=== PATIENT | female | born 1975 | race Hispanic/Latino ===

== ENCOUNTER 2020-11-01 09:53 | Emergency (ER) | payer SELFPAY ==
--- NOTE | 2020-11-01 10:17 | EDPHYS ---
Physician Documentation [facility] Name: Mary Quinones Age: 45 yrs Sex: Female : 1975 Arrival Date: 11/01/2020 Time: 09:56 Bed 23 Private MD: Bianka Uribe H ED Physician Heri Lewis HPI: 11/01 10:15 This 45 yrs old Female presents to ER via Ambulatory with complaints of Leg kb Swelling - redness. 10:15 The patient presents with cellulitis of the lateral aspect of right calf. Description: kb erythematous, swollen, warm. Onset: The symptoms/episode began/occurred 2 day(s) ago. Possible cause(s): dog scratch. Associated signs and symptoms: Pertinent positives: erythema, swelling, Pertinent negatives: discharge, drainage, foreign body sensation, fever, headache, nausea, shortness of breath, vomiting. Modifying factors: the symptoms are alleviated by nothing, the symptoms are aggravated by pressure, touching. Severity of symptoms: At their worst the symptoms were moderate, in the emergency department the symptoms are unchanged. The patient has not experienced similar symptoms in the past. The patient has not recently seen a physician. Pt states a dog scratched her leg 2-3 days ago. Since then it has developed redness, swelling and warmth. . 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 Last tetanus immunization: up to date. - Social history:: Smoking status: Patient reports the use of cigarette tobacco products, denies chronic smoking, but will smoke occasionally. ROS: 10:14 Constitutional: Negative for fever, chills, and weight loss. kb 10:14 Skin: Positive for cellulitis, erythema, swelling, of the lateral aspect of right calf. 10:14 All other systems are negative. Exam: 10:14 Constitutional: This is a well developed, well nourished patient who is awake, alert, kb and in no acute distress. Head/Face: Normocephalic, atraumatic. ENT: Moist Mucous membranes Respiratory: Respirations even and unlabored. No increased work of breathing, no retractions or nasal flaring. MS/ Extremity: Pulses equal, no cyanosis. Neurovascular intact. Full, normal range of motion. Neuro: Awake and alert, GCS 15, oriented to person, place, time, and situation. Moves all extremities. Normal gait. Psych: Awake, alert, with orientation to person, place and time. Behavior, mood, and affect are within normal limits. 10:14 Skin: cellulitis, that is moderate, on the lateral aspect of right calf. Vital Signs: 10:03 BP 172 / 111; Pulse 89; Resp 18 S; Temp 99.0(TE); Pulse Ox 100% on R/A; Weight 92.99 kg jd3 (R); Height 5 ft. 6 in. (167.64 cm) (R); Pain 10/10; 10:29 BP 125 / 95; Pulse 81; Resp 17; Pulse Ox 100% on R/A; oh 10:29 BP 131 / 89; Pulse 83; Resp 17; Temp 97.9(TE); Pulse Ox 100% on R/A; oh 10:03 Body Mass Index 33.09 (92.99 kg, 167.64 cm) jd3 MDM: 10:05 Patient medically screened. kb 10:13 Data reviewed: vital signs, nurses notes. Data interpreted: Pulse oximetry: on room air kb is 100 %. Interpretation: normal. 10:16 Counseling: I had a detailed discussion with the patient and/or guardian regarding: the kb historical points, exam findings, and any diagnostic results supporting the discharge/admit diagnosis, the need for outpatient follow up, a family practitioner, to return to the emergency department if symptoms worsen or persist or if there are any questions or concerns that arise at home. 11/01 10:13 Order name: Blood Pressure Recheck; Complete Time: 10:27 kb Administered Medications: 10:26 Drug: KeFLEX (cephalexin) 500 mg Route: PO; oh 10:39 Follow up: Response: No adverse reaction oh 10:27 Drug: Bactrim (trimethoprim-sulfamethoxazole) (160 mg-800 mg (DS) 1 tablet Route: PO; oh 10:39 Follow up: Response: No adverse reaction oh Disposition: 17:05 Co-signature as Attending Physician, Heri Lewis MD I agree with the assessment and kdr plan of care. Disposition Summary: 11/01/20 10:16 Discharge Ordered Location: Home kb Condition: Stable kb Diagnosis - Cellulitis of right lower limb kb Followup: kb - With: Emergency Department - When: As needed - Reason: Worsening of condition Followup: kb - With: Private Physician - When: 2 - 3 days - Reason: Recheck today's complaints, Continuance of care, Re-evaluation by your physician Discharge Instructions: - Discharge Summary Sheet kb - Cellulitis, Adult, Rbvl-ve-Odpv kb Forms: - Medication Reconciliation Form kb - Thank You Letter kb - Antibiotic Education kb - Prescription Opioid Use kb Prescriptions: - Cephalexin 500 mg Oral Capsule - take 1 capsule by ORAL route every 8 hours for 10 days; 30 capsule; Refills: 0, kb Product Selection Permitted - Bactrim DS 800-160 mg Oral Tablet - take 1 tablet by ORAL route every 12 hours for 10 days; 20 tablet; Refills: 0, kb Product Selection Permitted Signatures: Anuja Laguerre, WIRE FRAME LAMP SHADE MAKER-C WIRE FRAME LAMP SHADE MAKER-Heri Donahue MD MD kdr Migue Hernandes RN RN Kiko Waldron RN RN oh Corrections: (The following items were deleted from the chart) 10:03 10:03 PMHx: None; dustin chan
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
[2020-11-01 10:46] VITALS: O2SAT 100
[2020-11-01] MEDS ORDERED: CEPHALEXIN 250 MG CAP ONE (10:46)
[2020-11-01] MEDS ORDERED: SMZ./TMP. 800/160 MG TABLET ONE (10:47)
[2020-11-01 10:48] VITALS: BP 131/89; TEMP 97.9
== END 2020-11-01 10:39 | disposition home or self-care (01) ==
LOC: ER 09:53
DX: L03.115 Cellulitis of right lower limb (principal); I10 Essential (primary) hypertension; F17.210 Nicotine dependence, cigarettes, uncomplicated
CPT/HCPCS: 99283

== ENCOUNTER 2021-07-11 17:16 | Emergency (ER) | payer SELFPAY ==
--- OUTSIDE RECORDS SUMMARY | 2021-07-11 17:19 | XMS REPORT | Continuity of Care Document ---
:1975 Author Organization [facility] t Address [address] [place] [address] Care Team Providers Name Role Phone PCP, DOES NOT HAVE A Primary Care Physician Unavailable Kyle SHAW Attending Clinician Unavailable Ida Coley Attending Clinician Con DE LUNA S Attending Clinician Problems Condition Condition Condition Status Onset Resolution Last Treating Co mments Source Name Details Category Date Date Treatment Clinician Date No known No known Disease Unive rs active active ity of problems problems [facility] [place] [facility] Allergies, Adverse Reactions, Alerts Allergy Allergy Status Severity Reaction(s) Onset Inactive Treating Comm ents Source Name Type Date Date Clinician Sulfamet Propensi Active Other - See Bactrim Univers hoxazole ty to comments 09-05 ity of adverse 00:00: [place] reaction 00 [facility] SULFAMET DRUG Active Other-Cmnt Univ ers HOXAZOLE INGREDI 09-05 ity of 00:00: [place] 00 [facility] Social History Social Habit Start Date Stop Date Quantity Comments Source Sex Assigned At [facility] y [facility] Alcohol intake 2019-03-03 2019-03-03 [facility] 00:00:00 00:00:00 [facility] Smoking Status Start Date Stop Date Source Light tobacco smoker 2019-03-03 00:00:00 [facility] Medications Ordered Filled Start Stop Current Ordering Indication Dosage Frequency Signature Comments Components Source Medication Medication Date Date Medication? Clinician (SIG) Name Name dexamethaso 2019- No 10mg 10 mg, Uni vers ne 03-03 Oral, ity of (DECADRON 20:45: 20:13 ONCE, 1 [place] PHOS[place] 00 :00 dose, [place] Medi demetrice injection 03/03/19 at [facility] 10 mg 1445, STAT codeine-gua 2019- Yes [id number] 10mL Take 10 mL Univers ifenesin 1-23 by mouth ity of 10-100 mg/5 00:00: every 6 [place] as mL solution 00 (six) Medical hours as Branch needed for Cough. ibuprofen 2018- Yes [id number] 800mg Take 1 Univers 800 mg 9-30 tablet by ity of tablet 00:00: mouth [place] 00 every 8 Medical (eight) Branch hours as needed (PAIN). cephALEXin 2018- Yes [id number] 500mg Take 1 Univers (KEFLEX) 9-30 capsule by ity o f 500 mg 00:00: mouth 4 [place] capsule 00 (four) Medical times Branch daily. acetaminoph 2018- Yes [id number] 1{tbl} Take 1 Univers en-codeine 9-23 tablet by ity of 300-30 mg 00:00: mouth [place] tablet 00 every 6 Medical (six) Branch hours as needed for Pain (scale 7-10). HYDROcodone 2019- No 1{tbl} 1 tablet, Univers -acetaminop 10-22 Oral, ity of hen (NORCO 02:00: 01:02 ONCE, 1 [place] as 5) 5-325 mg 00 :00 dose, Odalis Med ical tablet 1 10/21/18 at [facility] h tablet 2100, MOOSE ketorolac 2019- No 60mg 60 mg, Unive rs (TORADOL) 10-22 Intramuscu ity of injection 02:00: 01:02 lar, ONCE, [place] 60 mg 00 :00 1 dose, Medical Od[place] Branch 10/21/18 at 2100, MOOSE
Fa culty member approving Restricted medication : SIRISHA DONWS lisinopril 2019- Yes [id number] 40mg Take 1 U nivers 40 mg 9-12 tablet by ity of tablet 00:00: mouth [place] 00 daily. Medical Branch traMADol 2018- Yes [id number] 50mg Take 1 Uni vers (ULTRAM) 50 9-12 tablet by ity of mg tablet 00:00: mouth [place] 00 every 6 Medical (six) Branch hours as needed for Pain (scale 7-10). lisinopril 2018- Yes [id number] 40mg Take 1 U nivers 40 mg 9-12 tablet by ity of tablet 00:00: mouth [place] 00 daily. Medical Branch traMADol Yes [id number] 50mg Take 1 Uni vers (ULTRAM) 50 9-12 tablet by ity of mg tablet 00:00: mouth [place] 00 every 6 Medical (six) Branch hours as needed for Pain (scale 7-10). acetaminoph Yes 1-2 by [facility] en-codeine 10-11 mouth ity of (TYLENOL-CO 00:00: every 4-6 [place] DEINE #3) 00 hours as Medica l 300-30 mg needed for Bran ch tablet pain acetaminoph Yes 1-2 by [facility] ers en-codeine 10-11 mouth ity of (TYLENOL-CO 00:00: every 4-6 [place] DEINE #3) 00 hours as Medica l 300-30 mg needed for Bran ch tablet pain Vital Signs Vital Name Observation Time Observation Value Comments Source Systolic blood 2019-03-03 18:57:00 164 mm[Hg] [facility] Diastolic blood 2019-03-03 18:57:00 92 mm[Hg] [facility] Heart rate 2019-03-03 18:57:00 97 /min [facility] Body temperature 2019-03-03 18:57:00 37.33 Summer [facility] Respiratory rate 2019-03-03 18:57:00 19 /min [facility] Oxygen saturation in 2019-03-03 18:57:00 100 /min [facility] Arterial blood by [facility] Pulse oximetry Branch Body weight 2019-03-03 18:53:00 77.111 kg [facility] BMI 2019-03-03 18:53:00 27.44 kg/m2 [facility] Systolic blood 2018-10-22 02:00:00 152 mm[Hg] [facility] Diastolic blood 2018-10-22 02:00:00 106 mm[Hg] [facility] Heart rate 2018-10-22 02:00:00 93 /min [facility] Respiratory rate 2018-10-22 02:00:00 18 /min [facility] Oxygen saturation in 2018-10-22 02:00:00 98 /min [facility] Arterial blood by [facility] Pulse oximetry [place] Body temperature 2018-10-22 00:34:00 36.72 Summer [facility] Body height 2018-10-22 00:34:00 167.6 cm [facility] Body weight 2018-10-22 00:34:00 83.915 kg [facility] BMI 2018-10-22 00:34:00 29.86 kg/m2 [facility] Procedures Procedure Date / Time Performed Performing Clinician Sourc e POCT TEST 2019-03-03 19:33:00 Rom Shultz [facility] XR CHEST 2 VW 2019-03-03 19:28:37 Rom Shultz [facility] RAPID STREP SCREEN 2019-03-03 18:59:00 Jennifer Neri [facility] FOR GROUP A Medical Branch ADC,CLC OR LCC ONLY - 2019-03-03 18:59:00 Jennifer Neri [facility] INFLUENZA A & B [facility] DIRECT ANTIGEN NOTICE OF PRIVACY 2019-03-03 18:47:59 Doctor Unassigned, No [facility]/REFUSAL FOR 2019-03-03 18:47:44 Doctor Unassigned, No [facility] [place] DI[facility]NOS[facility] AND Name Medical Branch TREATMENT XR FOREARM 2 VW RIGHT 2018-10-22 01:21:19 Sirisha Downs [facility] NOTICE OF PRIVACY 2018-10-22 00:30:50 [facility] CONSENT/REFUSAL FOR 2018-10-22 00:30:00 Doctor Unassigned, No [facility] [place] DIAGNOSIS AND Name Medical Branch TREATMENT Encounters Start End Encounter Admission Attending Care Care Encounter Source Date/Time Date/Time Type Type Clinicians Facility Department ID 2021-03-18 2021-03-18 Outpatient R [facility] [id number] Univers 13:00:00 13:00:00 GALI [facility] 2019-03-03 2019-03-03 Emergency Lexii, [facility] [id number] Univers 13:00:49 15:33:00 Rom Solis [id number] i [place] [id number] [facility] [id number] [place] [address] Branch 2018-10-21 2018-10-21 [facility] [id number] [facility] 19:36:33 21:40:00 Sirisha Solis [id number] [place] [id number] [facility] [id number] [address] Results Test Description Test Time Test Comments Results Result Comments Source ADC,CLC OR LCC ONLY - INFLUENZA A & B DIRECT ANTIGEN 2019-02 19:39:00 Test Item Value Reference Range Interpretation Comme nts Influenza A (test code = 04932-2) Negative Negative Influenza B (test code = 01025-6) Negative Negative Lab Interpretation (test code = 20500-0) Normal [facility] STREP SCREEN FOR GROUP [id number] 19:37:00 Test Item Value Reference Range Interpretation Comments Streptococcus pyogenes (group A) Negative Negative antigen (test code = 46543-6) Lab Interpretation (test code = Normal 96055-3) [facility] Test, [id number] 19:33:00 Test Item Value Reference Range Interpretation Comments POCT PREG (test code = 1605) negative On board controls acceptable with present C Line (test code = 3574) POCT PREG LOT # (test code = 3575) [id number] POCT PREG TEST DATE (test 2020-02-09 code = 3576) Lab Interpretation (test code = Normal 03482-6) [facility] 2 [id number] 19:30:12HISTORY: Rule out pneumonia. TECHNIQUE: PA and lateral views of the chest are obtained. Comparison madewith 03/22/2015 study. FINDINGS: No acute pneumonia detected. No pneumothorax or pleural effusionorpulmonary congestion. Cardiomediastinal contour appears normal.Incidental note made of some melara-shaped bilateral nipple ornaments. Notealso made of mild lower thoracic dextroscoliosis. No compression fracturein the thoracic vertebral body or any aggressive bone lesions visualized. CONCLUSIONS: No signs of acute cardiopulmonary disease.[place], Radiant Results Inft User - 03/03/2019 1:31 PM CSTHISTORY:Rule out pneumonia.TECHNIQUE: PA and lateral views of the chest are obtained. Comparison madewith 03/22/2015 study.FINDINGS: No acute pneumonia detected. No pneumothorax or pleural effusionor pulmonary congestion. Cardiomediastinal contour appears normal.Incidental note made of some melara-shaped bilateral nipple ornaments. Notealso made of mild lower thoracic dextroscoliosis. No compression fracturein the thoracic vertebral body or any aggressive bone lesions visualized.CONCLUSIONS: No signs of acute cardiopulmonary disease.[facility]
[2021-07-11] MEDS ORDERED: DIPHENHYDRAMINE 50 MG/ML VIAL ONE (18:10)
[2021-07-11] MEDS ORDERED: METOCLOPRAMIDE 10 MG/2mL INJ ONE (18:10)
[2021-07-11] MEDS ORDERED: NA CHLORIDE 0.9% 500 ML ONE (18:10)
[2021-07-11 18:27] LABS: Absolute Lymphocytes (CBC) 1.2 K/uL (0.7-4.9); Hematocrit 43.6 % (36.0-45.0); Lymphocytes % 17.4 % (15.3-44.8); RBC Red Blood Cell Count 4.89 M/uL (3.86-4.86)
[2021-07-11 18:37] LABS: Potassium 3.7 mmol/L (3.5-5.1)
--- NOTE | 2021-07-11 19:30 | RAD REPORT ---
EXAM DESCRIPTION: CT - Head Brain Wo Cont - 07/11/2021 7:16 pm CLINICAL HISTORY: Headache COMPARISON: None. TECHNIQUE: Computed axial tomography of the head was obtained. IV contrast was not requested. All CT scans are performed using dose optimization technique as appropriate and may include automated exposure control or mA/KV adjustment according to patient size. FINDINGS: An intracranial bleed is not seen . The ventricles are normal in caliber. No significant hypodense areas within the brain visualized No extra-axial fluid collection is noted. Fluid within the sinuses/ mastoids is not seen. IMPRESSION: No acute intracranial abnormality is seen. If patient's symptoms persist MRI of the bra in would be recommended.
--- NOTE | 2021-07-11 19:35 | RAD REPORT ---
EXAM DESCRIPTION: CTHead angio07/11/2021 7:16 pm CLINICAL HISTORY: Headache COMPARISON: None TECHNIQUE: CT angiogram of the head was obtained. 3D MIPS reconstruction performed. All CT scans are performed using dose optimization technique as appropriate and may include automated exposure control or mA/KV adjustment according to patient size. FINDINGS: The basilar, internal carotid, anterior cerebral, middle cerebral and posterior cerebral a rteries are normal caliber. The right vertebral artery terminates into the PICA An aneurysm is not seen. A significant stenosis is not noted. IMPRESSION: No acute abnormality displayed
[2021-07-11] MEDS ORDERED: KETOROLAC 30 MG/ML INJ ONE (20:54)
[2021-07-11] MEDS ORDERED: dexAMETHasone 10 MG/ML VIAL ONE (20:54)
--- NOTE | 2021-07-11 21:42 | ER ---
Nurse's Notes [facility] Name: Mary Quinones Age: 46 yrs Sex: Female : 1975 Arrival Date: 07/11/2021 Time: 17:19 Bed 20 Private MD: Diagnosis: Headache Presentation: 07/11 17:22 Chief complaint: Patient states: almost for 2 weeks now i been getting these bad tw2 headaches like someone is hitting me in the head. it goes from side to side and takes turns. +nausea and restless. Coronavirus screen: At this time, the client does not indicate any symptoms associated with coronavirus-19. Ebola Screen: Patient denies travel to an Ebola-affected area in the 21 days before illness onset. Initial Sepsis Screen: Does the patient meet any 2 criteria? No. Patient's initial sepsis screen is negative. Does the patient have a suspected source of infection? No. Patient's initial sepsis screen is negative. Risk Assessment: Do you want to hurt yourself or someone else? Patient reports no desire to harm self or others. Onset of symptoms was July 11, 2021. 17:22 Method Of Arrival: Ambulatory tw2 17:22 Acuity: GAL 2 tw2 Triage Assessment: 17:23 Headache History: The patient has had previous headaches and this one is more severe tw2 than previous episodes. General: Appears uncomfortable, Behavior is cooperative, appropriate for age, crying. Pain: Complains of pain in all over head Pain currently is 10 out of 10 on a pain scale. Pain began 2 weeks Also complains of nausea. Neuro: Level of Consciousness is awake, alert, obeys commands, Reports headache photophobia. 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 - Social history:: Smoking status: Patient reports the use of cigarette tobacco products, denies chronic smoking, but will smoke occasionally. Screenin:28 Abuse screen: Denies threats or abuse. Nutritional screening: No deficits noted. tw2 Tuberculosis screening: No symptoms or risk factors identified. Fall Risk None identified. Assessment: 18:10 General: Appears in no apparent distress. comfortable, Behavior is calm, cooperative, jd3 appropriate for age. Pain: Complains of pain in head Quality of pain is described as pressure, sharp, squeezing. Neuro: Gomez Agitation-Sedation Scale (RASS): 0 - Alert and Calm Level of Consciousness is awake, alert, obeys commands, Oriented to person, place, time, situation, Gait is steady, Speech is normal, Facial symmetry appears normal, Pupils are PERRLA. Cardiovascular: Denies chest pain, Capillary refill < 3 seconds Patient's skin is warm and dry. Respiratory: Airway is patent Respiratory effort is even, unlabored, Respiratory pattern is regular, symmetrical, Denies cough, shortness of breath. GI: No signs and/or symptoms were reported involving the gastrointestinal system. : No signs and/or symptoms were reported regarding the genitourinary system. EENT: No signs and/or symptoms were reported regarding the EENT system. Derm: Skin is intact, Skin is dry, Skin is normal, Skin temperature is warm. Musculoskeletal: Circulation, motion, and sensation intact. Range of motion: intact in all extremities. 18:41 Reassessment: No changes from previously documented assessment. Patient and/or family jd3 updated on plan of care and expected duration. Pain level reassessed. Patient is alert, oriented x 3, equal unlabored respirations, skin warm/dry/pink. 19:33 General: Appears in no apparent distress. comfortable, Behavior is calm, cooperative. lg3 Pain: Complains of pain in head. Neuro: No deficits noted. Gomez Agitation-Sedation Scale (RASS): 0 - Alert and Calm Level of Consciousness is awake, alert, obeys commands, Oriented to person, place, time, situation, Gait is steady, Speech is normal, Facial symmetry appears normal, Pupils are PERRLA. Cardiovascular: No deficits noted. Denies chest pain, shortness of breath, Capillary refill < 3 seconds Clubbing of nail beds is absent JVD is absent Patient's skin is warm and dry. Respiratory: No deficits noted. Airway is patent Trachea midline Respiratory effort is even, unlabored, Respiratory pattern is regular, symmetrical. GI: No deficits noted. No signs and/or symptoms were reported involving the gastrointestinal system. Abdomen is round non-distended. : No deficits noted. No signs and/or symptoms were reported regarding the genitourinary system. EENT: No deficits noted. No signs and/or symptoms were reported regarding the EENT system. Derm: No deficits noted. No signs and/or symptoms reported regarding the dermatologic system. Skin is intact, Skin is dry, Skin temperature is warm. Musculoskeletal: No deficits noted. No signs and/or symptoms reported regarding the musculoskeletal system. Circulation, motion, and sensation intact. Range of motion: intact in all extremities. 20:54 Reassessment: Patient appears in no apparent distress at this time. No changes from lg3 previously documented assessment. Patient and/or family updated on plan of care and expected duration. Pain level reassessed. Patient is alert, oriented x 3, equal unlabored respirations, skin warm/dry/pink. 22:34 Reassessment: Patient appears in no apparent distress at this time. No changes from lg3 previously documented assessment. Patient and/or family updated on plan of care and expected duration. Pain level reassessed. Patient is alert, oriented x 3, equal unlabored respirations, skin warm/dry/pink. Patient states feeling better. Patient states symptoms have improved. Vital Signs: 17:22 BP 145 / 122; Pulse 107; Resp 18; Temp 99.5(TE); Pulse Ox 99% on R/A; Weight 92.99 kg; tw2 Height 5 ft. 6 in. (167.64 cm); Pain 10/10; 18:41 BP 141 / 100; Pulse 78; Resp 16 S; Pulse Ox 100% on R/A; jd3 19:33 BP 138 / 88; Pulse 76; Resp 17; Pulse Ox 100% on R/A; lg3 22:35 BP 131 / 82; Pulse 75; Resp 16; Pulse Ox 100% on R/A; lg3 17:22 Body Mass Index 33.09 (92.99 kg, 167.64 cm) tw2 ED Course: 17:19 Patient arrived in ED. am2 17:23 Triage completed. tw2 17:26 Arm band placed on. tw2 17:26 Bed in low position. Call light in reach. tw2 17:27 Parish Taylor [facility]. jmm 17:27 Jesus Manuel Thomas MD is Attending Physician. jmm 17:44 Migue Hernandes, RN is Primary Nurse. jd3 18:03 Inserted saline lock: 20 gauge in right antecubital area, using aseptic technique. jd3 Blood collected. 19:18 CT Head Brain wo Cont In Process Unspecified. EDMS 19:18 CT Head Angio In Process Unspecified. EDMS 21:41 Nik Gaviria MD is Referral Physician. jmm 22:34 No provider procedures requiring assistance completed. IV discontinued, intact, lg3 bleeding controlled, No redness/swelling at site. Pressure dressing applied. Administered Medications: 18:11 Drug: Reglan (metoCLOPramide) 20 mg Route: IVP; Site: right antecubital; jd3 19:03 Follow up: Response: No adverse reaction jd3 18:11 Drug: NS 0.9% 500 ml Route: IV; Rate: bolus; Site: right antecubital; jd3 19:04 Follow up: Response: No adverse reaction; IV Status: Completed infusion jd3 18:12 Drug: diphenhydrAMINE 12.5 mg Route: IVP; Site: right antecubital; jd3 19:03 Follow up: Response: No adverse reaction jd3 20:52 Drug: Decadron - Dexamethasone 10 mg Route: IVP; Site: right antecubital; lg3 20:52 Follow up: Response: No adverse reaction lg3 20:52 Drug: Ketorolac 30 mg Route: IVP; Site: right antecubital; lg3 20:52 Follow up: Response: No adverse reaction lg3 Medication: 18:11 VIS not applicable for this client. jd3 Outcome: 21:41 Discharge ordered by . m 22:34 Discharged to home ambulatory. lg3 22:34 Condition: stable 22:34 Discharge instructions given to patient, Instructed on discharge instructions, medication usage, Demonstrated understanding of instructions, medications, Prescriptions given X 1. 22:36 Patient left the ED. lg3 Signatures: Dispatcher [employer] EDMS Parish Taylor PA PA jmm Lulú Livingston RN RN tw2 Nuvia Young am2 Migue Hernandes, RN RN jd3 Radha Ballard RN RN lg3 Corrections: (The following items were deleted from the chart) 18:42 18:41 Pulse 78bpm; Resp 16bpm; Spontaneous; Pulse Ox 100% RA; jd3 jd3 20:55 20:53 Reassessment: Patient appears in no apparent distress at this time. No changes lg3 from previously documented assessment. Patient and/or family updated on plan of care and expected duration. Pain level reassessed. Patient is alert, oriented x 3, equal unlabored respirations, skin warm/dry/pink. Patient states feeling better. lg3
--- NOTE | 2021-07-11 21:42 | EDPHYS ---
Physician Documentation [facility] Name: Mary Quinones Age: 46 yrs Sex: Female : 1975 Arrival Date: 07/11/2021 Time: 17:19 Bed 20 Private MD: ED Physician Jesus Manuel Thomas HPI: 07/11 17:32 This 46 yrs old Female presents to ER via Ambulatory with complaints of jmm Headache, Worst Ever. 17:32 This is a 46-year-old female with a history of hypertension and migraines that presents jmm to the emergency department with complaints of bilateral frontal headache which alternates. Symptoms began approximately 2 weeks ago but have not fully resolved. Patient states she has had similar episodes ever since head injury which occurred in 2005. Denies vomiting but states having some nausea. Denies fever or neck stiffness.. 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 - Social history:: Smoking status: Patient reports the use of cigarette tobacco products, denies chronic smoking, but will smoke occasionally. ROS: 17:32 Constitutional: Negative for fever, chills, and weight loss, Cardiovascular: Negative jmm for chest pain, palpitations, and edema, Respiratory: Negative for shortness of breath, cough, wheezing, and pleuritic chest pain. 17:32 Neuro: Positive for headache. 17:32 All other systems are negative. Exam: 17:32 Constitutional: This is a well developed, well nourished patient who is awake, alert, jmm and in no acute distress. Head/Face: atraumatic. Eyes: EOMI, no conjunctival erythema appreciated ENT: Moist Mucus Membranes Neck: Trachea midline, Supple Chest/axilla: Normal chest wall appearance and motion. Cardiovascular: Regular rate and rhythm. No edema appreciated Respiratory: Normal respirations, no respiratory distress appreciated Abdomen/GI: Non distended, soft Back: Normal ROM Skin: General appearance color normal MS/ Extremity: Moves all extremities, no obvious deformities appreciated, no edema noted to the lower extremities Neuro: Awake and alert Psych: Behavior is normal, Mood is normal, Patient is cooperative and pleasant Vital Signs: 17:22 BP 145 / 122; Pulse 107; Resp 18; Temp 99.5(TE); Pulse Ox 99% on R/A; Weight 92.99 kg; tw2 Height 5 ft. 6 in. (167.64 cm); Pain 10/10; 18:41 BP 141 / 100; Pulse 78; Resp 16 S; Pulse Ox 100% on R/A; jd3 19:33 BP 138 / 88; Pulse 76; Resp 17; Pulse Ox 100% on R/A; lg3 22:35 BP 131 / 82; Pulse 75; Resp 16; Pulse Ox 100% on R/A; lg3 17:22 Body Mass Index 33.09 (92.99 kg, 167.64 cm) tw2 MDM: 17:32 Patient medically screened. jeaneth 21:40 Data reviewed: vital signs, nurses notes. Counseling: I had a detailed discussion with bonita the patient and/or guardian regarding: the historical points, exam findings, and any diagnostic results supporting the discharge/admit diagnosis, lab results, radiology results, the need for outpatient follow up, to return to the emergency department if symptoms worsen or persist or if there are any questions or concerns that arise at home. ED course: Is improved. Do not suspect subarachnoid hemorrhage or meningitis. Patient is alert nontoxic in appearance patient vies follow with neurology for further evaluation otherwise given strict return precautions. Patient understood and agrees plan of care.. 07/11 17:55 Order name: CBC with Diff; Complete Time: 18:34 [facility] 07/11 17:55 Order name: BMP; Complete Time: 18:43 [facility] 07/11 17:54 Order name: CT Head Brain wo Cont; Complete Time: 19:32 [facility] 07/11 17:55 Order name: CT Head Angio; Complete Time: 19:38 [facility] 07/11 17:54 Order name: Saline Lock; Complete Time: 18:03 [facility] Administered Medications: 18:11 Drug: Reglan (metoCLOPramide) 20 mg Route: IVP; Site: right antecubital; jd3 19:03 Follow up: Response: No adverse reaction jd3 18:11 Drug: NS 0.9% 500 ml Route: IV; Rate: bolus; Site: right antecubital; jd3 19:04 Follow up: Response: No adverse reaction; IV Status: Completed infusion jd3 18:12 Drug: diphenhydrAMINE 12.5 mg Route: IVP; Site: right antecubital; jd3 19:03 Follow up: Response: No adverse reaction jd3 20:52 Drug: Decadron - Dexamethasone 10 mg Route: IVP; Site: right antecubital; lg3 20:52 Follow up: Response: No adverse reaction lg3 20:52 Drug: Ketorolac 30 mg Route: IVP; Site: right antecubital; lg3 20:52 Follow up: Response: No adverse reaction lg3 Disposition Summary: 07/11/21 21:41 Discharge Ordered Location: Home jm Condition: Stable jm Diagnosis - Headache jm Followup: m - With: Nik Gaviria MD - When: 2 - 3 days - Reason: Recheck today's complaints, Continuance of care, Re-evaluation by your physician Discharge Instructions: - Discharge Summary Sheet jm - General Headache Without Cause jmm - Migraine Headache jm Forms: - Medication Reconciliation Form jm - Thank You Letter jm - Antibiotic Education jm - Prescription Opioid Use [facility] Prescriptions: - Diclofenac Sodium 75 mg Oral Tablet Sustained Release - take 1 tablet by ORAL route 2 times per day; 30 tablet; Refills: 0, Product jm Selection Permitted Signatures: Dispatcher [employer] Jesus Manuel aClderón MD MD cha Mickail, Joel, PA PA jmm Wise, Tara, RN RN tw2 Migue Hernandes RN RN jd3 Radha Ballard RN RN lg3
[2021-07-11 22:52] VITALS: TEMP 99.5
[2021-07-11 22:54] VITALS: O2SAT 100
[2021-07-11 22:57] VITALS: BP 131/82
== END 2021-07-11 22:36 | disposition home or self-care (01) ==
LOC: ER 17:16
DX: R51.9 Headache, unspecified (principal); R11.0 Nausea; I10 Essential (primary) hypertension; F17.210 Nicotine dependence, cigarettes, uncomplicated; Z88.1 Allergy status to other antibiotic agents
CPT/HCPCS: 36415; 70450; 70496; 80048; 85025; 96361; 96374; 96375; 99284; J1100; J1200; J2765; J7040; Q9967

== ENCOUNTER 2021-12-04 19:58 | Emergency (ER) | payer OTHER ==
--- OUTSIDE RECORDS SUMMARY | 2021-12-04 20:02 | XMS REPORT | Continuity of Care Document ---
:1975 Author Organization [facility] t Address [address] [place] [address] Care Team Providers Name Role Phone PCP, PATIENT DOES NOT HAVE A Primary Care Physician UnavailGALI Davis Attending Clinician Unavailable Rom Coley Attending Clinician Sirisha Downs MD Attending Clinician Problems Condition Condition Condition Status Onset Resolution Last Treating Co mments Source Name Details Category Date Date Treatment Clinician Date No known No known Disease Unive rs active active ity of problems problems [facility] Allergies, Adverse Reactions, Alerts Allergy Allergy Status Severity Reaction(s) Onset Inactive Treating Comm ents Source Name Type Date Date Clinician Sulfamet Propensi Active Other - See Bactrim Univers hoxazole ty to comments 09-05 ity of adverse 00:00: [place] reaction 00 [facility] SULFAMET DRUG Active Other-Cmnt Univ ers HOXAZOLE INGREDI 09-05 ity of 00:00: [address] Social History Social Habit Start Date Stop Date Quantity Comments Source Sex Assigned At [facility] Alcohol intake 2019-03-03 2019-03-03 [facility] 00:00:00 00:00:00 [facility] Smoking Status Start Date Stop Date Source Light tobacco smoker 2019-03-03 00:00:00 [facility] Medications Ordered Filled Start Stop Current Ordering Indication Dosage Frequency Signature Comments Components Source Medication Medication Date Date Medication? Clinician (SIG) Name Name dexamethaso 2019- No 10mg 10 mg, Uni vers ne 03-03 Oral, ity of (DECADRON 20:45: 20:13 ONCE, 1 [place] PHOS[place] 00 :00 dose, [place] [facility]i demetrice injection 03/03/19 at [facility] 10 mg 1445, STAT codeine-gua Yes [id number] 10mL Take 10 mL Univers ifenesin -23 by mouth ity of 10-100 mg/5 00:00: every 6 [place] as mL solution 00 (six) Medical hours as Branch needed for Cough. ibuprofen 2018- Yes [id number] 800mg Take 1 Univers 800 mg 9-30 tablet by ity of tablet 00:00: mouth [place] 00 every 8 Medical (eight) Branch hours as needed (PAIN). cephALEXin 2018- Yes [id number] 500mg Take 1 Univers (KEFLEX) 9-30 capsule by ity o f 500 mg 00:00: mouth 4 [place] capsule 00 (four) Medical times Branch daily. acetaminoph 2018- Yes [id number] 1{tbl} Take 1 Univers en-codeine 11-01 tablet by ity of 300-30 mg 00:00: mouth [place] tablet 00 every 6 Medical (six) Branch hours as needed for Pain (scale 7-10). HYDROcodone 2019- No 1{tbl} 1 tablet, Univers -acetaminop 10-22 Oral, ity of hen (NORCO 02:00: 01:02 ONCE, 1 [place] as 5) 5-325 mg 00 :00 dose, [place] [facility] ical tablet 1 10/21/18 at [facility] tablet 2100, MOOSE ketorolac 2019- No 60mg 60 mg, Unive rs (TORADOL) 10-22 Intramuscu ity of injection 02:00: 01:02 lar, ONCE, [place] 60 mg 00 :00 1 dose, Medical [place] Branch 10/21/18 at 2100, MOOSE
Fa culty member approving Restricted medication : SIRISHA DOWNS lisinopril 2018- Yes [id number] 40mg Take 1 U nivers 40 mg 9-12 tablet by ity of tablet 00:00: mouth [place] 00 daily. Medical Branch traMADol 2018- Yes [id number] 50mg Take 1 Uni vers (ULTRAM) 50 9-12 tablet by ity of mg tablet 00:00: mouth [place] 00 every 6 Medical (six) Branch hours as needed for Pain (scale 7-10). lisinopril Yes [id number] 40mg Take 1 U nivers 40 mg 9-12 tablet by ity of tablet 00:00: mouth [place] 00 daily. Medical Branch traMADol Yes [id number] 50mg Take 1 Uni vers (ULTRAM) 50 9-12 tablet by ity of mg tablet 00:00: mouth [place] 00 every 6 Medical (six) Branch hours as needed for Pain (scale 7-10). acetaminoph Yes 1-2 by [facility] ers en-codeine 10-11 mouth ity of (TYLENOL-CO 00:00: every 4-6 [place] DEINE #3) 00 hours as Medica l 300-30 mg needed for Bran ch tablet pain acetaminoph Yes 1-2 by [facility] ers en-codeine 10-11 mouth ity of (TYLENOL-CO 00:00: every 4-6 [place] DEINE #3) 00 hours as Medica l 300-30 mg needed for Bran ch tablet pain Vital Signs Vital Name Observation Time Observation Value Comments Source Systolic blood 2019-03-03 18:57:00 164 mm[Hg] Univer sity [facility] Diastolic blood 2019-03-03 18:57:00 92 mm[Hg] Unive [facility] Heart rate 2019-03-03 18:57:00 97 /min [facility] Body temperature 2019-03-03 18:57:00 37.33 Summer [facility] Respiratory rate 2019-03-03 18:57:00 19 /min [facility] Oxygen saturation in 2019-03-03 18:57:00 100 /min [facility] Arterial blood by [facility] Pulse oximetry Branch Body weight 2019-03-03 18:53:00 77.111 kg [facility] BMI 2019-03-03 18:53:00 27.44 kg/m2 [facility] Systolic blood 2018-10-22 02:00:00 152 mm[Hg] Univer sity [facility] Diastolic blood 2018-10-22 02:00:00 106 mm[Hg] Unive [facility] Heart rate 2018-10-22 02:00:00 93 /min [facility] Respiratory rate 2018-10-22 02:00:00 18 /min [facility] Oxygen saturation in 2018-10-22 02:00:00 98 /min [facility] Arterial blood by [facility] Pulse oximetry [place] Body temperature 2018-10-22 00:34:00 36.72 Summer [facility] Body height 2018-10-22 00:34:00 167.6 cm [facility] Body weight 2018-10-22 00:34:00 83.915 kg [facility] BMI 2018-10-22 00:34:00 29.86 kg/m2 [facility] Procedures Procedure Date / Time Performed Performing Clinician Sourc e POCT TEST 2019-03-03 19:33:00 Rom Shultz [facility] XR CHEST 2 VW 2019-03-03 19:28:37 Rom Shultz [facility] RAPID STREP SCREEN 2019-03-03 18:59:00 Jennifer Neri [facility] FOR GROUP A Medical Branch ADC,CLC OR LCC ONLY - 2019-03-03 18:59:00 Jennifer Neri [facility] INFLUENZA A & B [facility] DIRECT ANTIGEN NOTICE OF PRIVACY 2019-03-03 18:47:59 [facility] CONSENT/REFUSAL FOR 2019-03-03 18:47:44 Doctor Unassigned, No [facility] [place] [facility] AND Name Medical Branch TREATMENT XR FOREARM 2 VW RIGHT 2018-10-22 01:21:[address] [facility] NOTICE OF PRIVACY 2018-10-22 00:30:50 [facility] CONSENT/REFUSAL FOR 2018-10-22 00:30:00 Doctor Unassigned, No [facility] [place] DIAGNOSIS AND Name Medical Branch TREATMENT Encounters Start End Encounter Admission Attending Care Care Encounter Source Date/Time Date/Time Type Type Clinicians Facility Department ID 2021-03-18 2021-03-18 Outpatient R VALERIA [facility] [id number] Univers 13:00:00 13:00:00 GALI ity [facility] 2019-03-03 2019-03-03 Emergency Lexii, [facility] [[email or web address] [id number] [facility] 13:00:49 15:33:00 Rom Solis [id number] i ty of [place] [id number] [facility] [id number] [address] 2018-10-21 2018-10-21 Emergency [facility] [id number] [facility] 19:36:33 21:40:00 Sirisha Solis [id number] ity of [place] [id number] [facility] [id number] [address] Results Test Description Test Time Test Comments Results Result Comments Source ADC,CLC OR LCC ONLY - INFLUENZA A & B DIRECT ANTIGEN 2019-02 19:39:00 Test Item Value Reference Range Interpretation Comme nts Influenza A (test code = 60957-8) Negative Negative Influenza B (test code = 75413-4) Negative Negative Lab Interpretation (test code = 34731-9) Normal [facility] STREP SCREEN FOR GROUP [id number] 19:37:00 Test Item Value Reference Range Interpretation Comments Streptococcus pyogenes (group A) Negative Negative antigen (test code = 36856-9) Lab Interpretation (test code = Normal 45849-2) [facility] [id number] 19:33:00 Test Item Value Reference Range Interpretation Comments POCT PREG (test code = 1605) negative On board controls acceptable with present C Line (test code = 3574) POCT PREG LOT # (test code = 3575) [id number] POCT PREG TEST DATE (test 2020-02-09 code = 3576) Lab Interpretation (test code = Normal 73095-7) [facility] 2 [id number] 19:30:12HISTORY: Rule out pneumonia. TECHNIQUE: PA and [...] visualized. CONCLUSIONS: No signs of acute cardiopulmonary disease.[facility], Radiant Results Inft User - 03/03/2019 1:31 PM CSTHISTORY: Rule out pneumonia.TECHNIQUE: PA and lateral views of the chest are obtained. Comparison madewith 03/22/2015 study.FINDINGS: No acute pneumonia detected. No pneumothorax or pleural effusionor pulmonary congestion. Cardiomediastinal contour appears normal.Incidental note made of some melara-shaped bilateral nipple ornaments. Notealso made of mild lower thoracic dextroscoliosis. No compression fracturein the thoracic vertebral body or any aggressive bone lesions visualized.CONCLUSIONS: No signs of acute cardiopulmonary disease.[facility]
[2021-12-04] MEDS ORDERED: DERMABOND SKIN ADHESIVE TOP ONE (20:47)
--- NOTE | 2021-12-04 21:50 | ER ---
Nurse's Notes [facility] Name: Mary Quinones Age: 46 yrs Sex: Female : 1975 Arrival Date: 12/04/2021 Time: 20:07 Bed 10 Private MD: Diagnosis: Laceration without foreign body of left thumb without damage to nail, initial encounter;Acute laryngitis Presentation: 12/04 20:12 Chief complaint: Patient states: Laceration to left thumb - reports cutting finger on ld1 pocket knife. Sore throat, headache, lose of voice. Coronavirus screen: At this time, the client does not indicate any symptoms associated with coronavirus-19. Ebola Screen: No symptoms or risks identified at this time. Initial Sepsis Screen: Does the patient meet any 2 criteria? No. Patient's initial sepsis screen is negative. Does the patient have a suspected source of infection? No. Patient's initial sepsis screen is negative. Risk Assessment: Do you want to hurt yourself or someone else? Patient reports no desire to harm self or others. Onset of symptoms was December 04, 2021. 20:12 Method Of Arrival: Ambulatory ld1 20:12 Acuity: GAL 4 ld1 Triage Assessment: 20:12 General: Appears in no apparent distress. comfortable, Behavior is calm, cooperative, ld1 appropriate for age. Pain: Denies pain. EENT: No signs and/or symptoms were reported regarding the EENT system. Neuro: Level of Consciousness is awake, alert, obeys commands, Oriented to person, place, time, situation. Cardiovascular: Capillary refill < 3 seconds Patient's skin is warm and dry. Respiratory: Airway is patent Respiratory effort is even, unlabored. GI: Abdomen is flat, non-distended. : No signs and/or symptoms were reported regarding the genitourinary system. Derm: No signs and/or symptoms reported regarding the dermatologic system. Musculoskeletal: No signs and/or symptoms reported regarding the musculoskeletal system. Injury Description: Laceration sustained to palmar aspect of distal phalanx of left thumb. [employer]: 20:12 LMP N/A - ld1 Historical: - Allergies: 20:12 Baclofen; ld1 - PMHx: 20:12 Hypertensive disorder; Migraine; ld1 - PSHx: 20:12 shavonne removed; ld1 - Immunization history:: Adult Immunizations up to date, Client reports having NOT received the Covid vaccine. - Social history:: Smoking status: Patient denies any tobacco usage or history of. Patient/guardian denies using alcohol. - Family history:: not pertinent. - Hospitalizations: : No recent hospitalization is reported. Screenin:25 Abuse screen: Denies threats or abuse. Nutritional screening: No deficits noted. em6 Tuberculosis screening: No symptoms or risk factors identified. Fall Risk Total Lopez Fall Scale indicates No Risk (0-24 pts). Assessment: 20:25 Reassessment: see triage assessment. em6 20:25 Respiratory: Airway is patent Respiratory effort is even, unlabored, Respiratory em6 pattern is regular, symmetrical, Breath sounds are clear bilaterally. 20:25 EENT: Throat is reddened. em6 21:25 Reassessment: No changes from previously documented assessment. Patient and/or family em6 updated on plan of care and expected duration. Pain level reassessed. Patient is alert, oriented x 3, equal unlabored respirations, skin warm/dry/pink. Vital Signs: 20:12 BP 155 / 83; Pulse 76; Resp 18; Temp 98.3(TE); Pulse Ox 100% on R/A; Weight 83.46 kg; ld1 Height 5 ft. 6 in. (167.64 cm); Pain 9/10; 22:09 BP 146 / 84; Pulse 80; Resp 18; Pulse Ox 100% on R/A; em6 20:12 Body Mass Index 29.70 (83.46 kg, 167.64 cm) ld1 ED Course: 20:07 Patient arrived in ED. mr 20:10 Justin Bettencourt MD is Attending Physician. rn 20:12 Arm band placed on right wrist. ld1 20:13 Triage completed. ld1 20:25 Bed in low position. Call light in reach. Side rails up X 1. Pulse ox on. NIBP on. Warm em6 blanket given. 20:30 Flu Sent. jb4 20:30 Strep Sent. jb4 20:36 Kathy Ballesteros, RN is Primary Nurse. em6 20:55 Flu Sent. em6 20:55 Strep Sent. em6 22:09 No provider procedures requiring assistance completed. Patient did not have IV access em6 during this emergency room visit. Administered Medications: No medications were administered Medication: 22:10 VIS not applicable for this client. em6 Outcome: 21:50 Discharge ordered by . rn 22:10 Discharged to home ambulatory. em6 22:10 Condition: stable 22:10 Discharge instructions given to patient, Instructed on discharge instructions, follow up and referral plans. medication usage, wound care, Demonstrated understanding of instructions, follow-up care, medications, wound care, Prescriptions given X 1. 22:10 Patient left the ED. em6 Signatures: Blake Yahaira kyle Justin Bettencourt MD MD rn Bryson, James RN RN jb4 Velma Laird RN RN ld1 Kathy Ballesteros RN RN em6 Corrections: (The following items were deleted from the chart) 20:14 20:12 Chief complaint: Patient states: Laceration to left thumb - reports cutting ld1 finger on pocket knife. ld1 20:14 20:12 Resp 18bpm; Pulse Ox 100% RA; Temp 98.3F Temporal; 83.46 kg; Height 5 ft. 6 in.; ld1 BMI: 29.7; Pain 9/10; ld1
--- NOTE | 2021-12-04 21:51 | EDPHYS ---
Physician Documentation [facility] Name: Mary Quinones Age: 46 yrs Sex: Female : 1975 Arrival Date: 12/04/2021 Time: 20:07 Bed 10 Private MD: ED Physician Justin Bettencourt HPI: 12/04 21:46 This 46 yrs old Female presents to ER via Ambulatory with complaints of Thumb rn laceration, Sore Throat. 21:47 The patient has a laceration and there are no complicating factors. The laceration(s) rn is(are) located on the palmar aspect of distal phalanx of left thumb. Onset: The symptoms/episode began/occurred just prior to arrival. Associated signs and symptoms: Pertinent negatives: deformity, heavy bleeding, numbness distal to injury, suspected foreign body. The patient has not experienced similar symptoms in the past. The patient has not recently seen a physician. Pt reports accidentally cut left thumb on new pocket knife, mild bleeding which has stopped. Also reports sore throat and wants that evaluated. . NURSING ADMIN: 20:12 LMP N/A - ld1 Historical: - Allergies: 20:12 Baclofen; ld1 - PMHx: 20:12 Hypertensive disorder; Migraine; ld1 - PSHx: 20:12 shavonne removed; ld1 - Immunization history:: Adult Immunizations up to date, Client reports having NOT received the Covid vaccine. - Social history:: Smoking status: Patient denies any tobacco usage or history of. Patient/guardian denies using alcohol. - Family history:: not pertinent. - Hospitalizations: : No recent hospitalization is reported. ROS: 21:47 Constitutional: Negative for fever, chills, and weight loss, Eyes: Negative for injury, rn pain, redness, and discharge, ENT: + sore throat Neck: Negative for injury, pain, and swelling, Cardiovascular: Negative for chest pain, palpitations, and edema, Respiratory: Negative for shortness of breath, cough, wheezing, and pleuritic chest pain, Abdomen/GI: Negative for abdominal pain, nausea, vomiting, diarrhea, and constipation, Back: Negative for injury and pain, MS/Extremity: Negative for deformity Skin: + superficial laceration to left thumb Neuro: Negative for headache, weakness, numbness, tingling, and seizure. Exam: 21:47 Constitutional: This is a well developed, well nourished patient who is awake, alert, rn and in no acute distress. Head/Face: Normocephalic, atraumatic. ENT: No stridor Cardiovascular: Regular rate and rhythm. No pulse deficits. Respiratory: No increased work of breathing, no retractions or nasal flaring. MS/ Extremity: Pulses equal, no cyanosis. Neurovascular intact. Full, normal range of motion. Equal circumference. + 2cm superficial laceration to palmar aspect of left thumb. Neuro: Awake and alert, GCS 15 Vital Signs: 20:12 BP 155 / 83; Pulse 76; Resp 18; Temp 98.3(TE); Pulse Ox 100% on R/A; Weight 83.46 kg; ld1 Height 5 ft. 6 in. (167.64 cm); Pain 9/10; 22:09 BP 146 / 84; Pulse 80; Resp 18; Pulse Ox 100% on R/A; em6 20:12 Body Mass Index 29.70 (83.46 kg, 167.64 cm) ld1 Laceration: 21:19 Wound Repair of 2cm ( 0.8in ) subcutaneous laceration to palmar aspect of distal rn phalanx of left thumb. Distal neuro/vascular/tendon intact. Wound prep: Extensive cleansing by nurse. Skin closed with 1 thin layer Adhesive skin closure using Dermabond. Patient tolerated well. MDM: 20:10 Patient medically screened. rn 21:47 Differential diagnosis: superficial laceration. Data reviewed: vital signs, nurses rn notes, lab test result(s), and as a result, I will discharge patient. Counseling: I had a detailed discussion with the patient and/or guardian regarding: the historical points, exam findings, and any diagnostic results supporting the discharge/admit diagnosis, lab results, the need for outpatient follow up, to return to the emergency department if symptoms worsen or persist or if there are any questions or concerns that arise at home. Response to treatment: the patient's symptoms have markedly improved after treatment, and as a result, I will discharge patient. Special discussion: I discussed with the patient/guardian in detail that at this point there is no indication for admission to the hospital. It is understood, however, that if the symptoms persist or worsen the patient needs to return immediately for re-evaluation. 12/04 20:15 Order name: Strep rn 12/04 20:15 Order name: Flu rn 12/04 20:15 Order name: Dermabond; Complete Time: 20:55 rn 12/04 20:15 Order name: Wound Care; Complete Time: 22:10 rn 12/04 21:08 Order name: Throat Culture EDMS Administered Medications: No medications were administered Disposition Summary: 12/04/21 21:50 Discharge Ordered Location: Home rn Problem: new rn Symptoms: have improved rn Condition: Stable rn Diagnosis - Laceration without foreign body of left thumb without damage to nail, initial rn encounter - Acute laryngitis rn Followup: rn - With: Private Physician - When: As needed - Reason: Recheck today's complaints, Re-evaluation by your physician Discharge Instructions: - Discharge Summary Sheet rn - Tissue Adhesive print journalist - Laceration Care, Adult rn - Laryngitis rn Forms: - Medication Reconciliation Form rn - Thank You Letter rn - Antibiotic multicultural internship - Prescription Opioid Use rn Prescriptions: - Augmentin 875-125 mg Oral Tablet - take 1 tablet by ORAL route every 12 hours for 10 days; 20 tablet; Refills: 0, rn Product Selection Permitted Signatures: Dispatcher [employer] Justin Bradley MD MD rn Velma Laird RN RN ld1
== END 2021-12-04 22:10 | disposition home or self-care (01) ==
LOC: ER 19:58
PROC: 0JQK0ZZ Repair Left Hand Subcutaneous Tissue and Fascia, Open Approach (ICD-10-PCS; principal; 2021-12-04)
DX: S61.012A Laceration without foreign body of left thumb without damage to nail, initial encounter (principal); J04.0 Acute laryngitis; I10 Essential (primary) hypertension; Z88.1 Allergy status to other antibiotic agents
CPT/HCPCS: 87070; 87081; 87804; 99283

== ENCOUNTER 2022-12-16 11:36 | Emergency (ER) | payer OTHER ==
--- OUTSIDE RECORDS SUMMARY | 2022-12-16 11:40 | XMS REPORT | Continuity of Care Document ---
:1975 Author Organization [facility] t Address [address] [facility] [address] [place] [id number] Care Team Providers Name Role Phone Pcp, Patient Does Not Have A Primary Care Physician [id number] KANDICE HUTCHISON Attending Clinician Unavailable Kandice Hutchison DO Attending Clinician GALI SHAW Attending Clinician Unavailable Rom Coley Attending Clinician Juan Andujar MD Attending Clinician Payers Payer Name Policy Type Policy Number Effective Date Expiration Date Cherrie [employer] [id number] 2022 OUT OF NETWORK 00:00:00 Problems Condition Condition Condition Status Onset Resolution Last Treating Co mments Source Name Details Category Date Date Treatment Clinician Date No known No known Disease Unive rs active active ity of problems problems [facility] Allergies, Adverse Reactions, Alerts Allergy Allergy Status Severity Reaction(s) Onset Inactive Treating Comm ents Source Name Type Date Date Clinician Sulfamet Propensi Active Other - See Bactrim Univers hoxazole ty to comments 09-05 ity of adverse 00:00: [place] reaction [address] [place] [address] SULFAMET DRUG Active Other-Cmnt Univ ers HOXAZOLE INGREDI 09-05 ity of 00:00: [place] 00 [facility] Social History Social Habit Start Date Stop Date Quantity Comments Source History of tobacco Light tobacco Uni versity of use smoker [facility] Sexual orientation Univer sity of [facility] History of Social 2019-09-15 2019-09-15 Univers ity of function 00:00:00 00:00:00 [facility] Alcohol intake 2019-03-03 2019-03-03 0 /d University of 00:00:00 00:00:00 [facility] Sex Ass[birth year] At [birth year] Universit y of 00:00:00 00:00:00 [facility] Smoking Status Start Date Stop Date Source Light tobacco smoker 2015-09-06 00:00:00 [facility] ity [facility] Medications Ordered Filled Start Stop Current Ordering Indication Dosage Frequency Signature Comments Components Source Medication Medication Date Date Medication? Clinician (SIG) Name Name ketorolac 2022-02 No 10mg 10 mg, Unive rs (TORADOL) 02-13 Oral, ity of tablet 10 03:30: 02:46 [place]CE, [place] mg [place] :00 dose, On Medical Sat Branch 12/13/22 at 2230, Routine naproxen 2022-02 Yes [id number] 550mg Take 1 Un vania sodium 550 02-12 tablet by ity of mg tablet 00:00[place] the Medical morning Branch and 1 tablet in the evening. Take with meals. methylPREDN 2022-02 Yes [id number] Take by [facility] ISolone 4 04 mouth ity of mg tablets 00:00: SEE-INSTRU [place] 00 CTIONS. Medical follow Branch package directions methocarbam 2022-02- Yes [id number] 500mg Take 1 Univers oL 500 mg 02-12 tablet by ity of tablet 00:00: 05:59 mouth in [place] 00 :00 the Medical morning Branch and 1 tablet at noon and 1 tablet in the evening. Do all this for 5 days. dexamethaso 2019- No 10mg 10 mg, Uni vers ne 03-03 Oral, ity of (DECADRON 20:45: 20:13 [place]CE, 1 [place] PHOSPHATE) 00 :00 dose, [place] Medi demetrice injection 03/03/19 at Bran ch 10 mg 1445, STAT codeine-gua Yes [id number] 10mL Take 10 mL Univers ifenesin 03-03 by mouth ity of 10-100 mg/5 00:00: every 6 [place] as mL solution 00 (six) Medical hours as Branch needed for Cough. codeine-gua Yes [id number] 10mL Take 10 mL Univers ifenesin 1-23 by mouth ity of 10-100 mg/5 00:00: every 6 [place] as mL solution 00 (six) Medical hours as Branch needed for Cough. ibuprofen 2018- Yes [id number] 800mg Take 1 Univers 800 mg 9-30 tablet by ity of tablet 00:00: mouth [place] 00 every 8 Medical (eight) Branch hours as needed (PAIN). cephALEXin 2018- Yes [id number] 500mg Take 1 Univers (KEFLEX) 9-30 capsule by ity o f 500 mg 00:00: mouth 4 [place] capsule 00 (four) Medical times Branch daily. ibuprofen Yes [id number] 800mg Take 1 Univers 800 mg 9-30 tablet by ity of tablet 00:00: mouth [place] 00 every 8 Medical (eight) Branch hours as needed (PAIN). cephALEXin Yes [id number] 500mg Take 1 Univers (KEFLEX) 9-30 capsule by ity o f 500 mg 00:00: mouth 4 [place] capsule 00 (four) Medical times Branch daily. acetaminoph Yes [id number] 1{tbl} Take 1 Univers en-codeine 9-23 tablet by ity of 300-30 mg 00:00: mouth [place] tablet 00 every 6 Medical (six) Branch hours as needed for Pain (scale 7-10). acetaminoph Yes [id number] 1{tbl} Take 1 Univers en-codeine 9-23 tablet by ity of 300-30 mg 00:00: mouth [place] tablet 00 every 6 Medical (six) Branch hours as needed for Pain (scale 7-10). HYDROcodone 2019- No 1{tbl} 1 tablet, Univers -acetaminop 10-22 Oral, ity of hen (NORCO 02:00: 01:02 ONCE, 1 [place] as 5) 5-325 mg 00 :00 dose, [place] Med ical tablet 1 10/21/18 at Bran h tablet 2100, MOOSE ketorolac 2019- No 60mg 60 mg, Unive rs (TORADOL) 9-13 09-13 Intramuscu ity of injection 02:00: 01:02 lar, ONCE, [place] 60 mg 00 :00 1 dose, Medical [place] Branch 10/21/18 at 2100, MOOSE
Fa culty member approving Restricted medication : MEGEDGARDJUAN lisinopril Yes [id number] 40mg Take 1 U nivers 40 mg 9-12 tablet by ity of tablet 00:00: mouth [place] 00 daily. Medical Branch traMADol Yes [id number] 50mg Take 1 Uni vers (ULTRAM) 50 9-12 tablet by ity of mg tablet 00:00: mouth [place] 00 every 6 Medical (six) Branch hours as needed for Pain (scale 7-10). lisinopril Yes [id number] 40mg Take 1 U nivers 40 mg 9-12 tablet by ity of tablet 00:00: mouth [place] 00 daily. Medical Branch traMADol Yes [id number] 50mg Take 1 Uni vers (ULTRAM) 50 9-12 tablet by ity of mg tablet 00:00: mouth [place] 00 every 6 Medical (six) Branch hours as needed for Pain (scale 7-10). lisinopril Yes [id number] 40mg Take 1 U nivers 40 mg 9-12 tablet by ity of tablet 00:00: mouth [place] 00 daily. Medical Branch traMADol Yes [id number] 50mg Take 1 Uni vers (ULTRAM) 50 9-12 tablet by ity of mg tablet 00:00: mouth [place] 00 every 6 Medical (six) Branch hours as needed for Pain (scale 7-10). acetaminoph Yes 1-2 by [facility] ers en-codeine 10-11 mouth ity of (TYLENOL-CO 00:00: every 4-6 [place] DEINE #3) 00 hours as Medica l 300-30 mg needed for Bran ch tablet pain acetaminoph Yes 1-2 by [facility] en-codeine 10-11 mouth ity of (TYLENOL-CO 00:00: every 4-6 [place] DEINE #3) 00 hours as Medica l 300-30 mg needed for Bran ch tablet pain acetaminoph Yes 1-2 by [facility] en-codeine 10-11 mouth ity of (TYLENOL-CO 00:00: every 4-6 [place] WATT #3) 00 hours as Medica l 300-30 mg needed for Bran ch tablet pain Vital Signs Vital Name Observation Time Observation Value Comments Source Respiratory rate 2022-12-14 16 /min [facility] 02:52:00 [facility] Systolic blood 2022-12-14 150 mm[Hg] pt non compliant Universit y of pressure 02:07:00 with BP [facility] medication [place] Diastolic blood 2022-12-14 118 mm[Hg] pt non compliant Universi ty of pressure 02:07:00 with BP [facility] medication [place] Heart rate 2022-12-14 117 /min [facility] 02:07:00 [facility] Body temperature 2022-12-14 36.39 Summer [facility] 02:07:00 [facility] Body height 2022-12-14 167.6 cm [facility] 02:07:00 [facility] Body weight 2022-12-14 83.915 kg [facility] 02:07:00 [facility] BMI 2022-12-14 29.86 kg/m2 [facility] 02:07:00 [facility] Oxygen saturation 2022-12-14 100 /min [facility] in Arterial blood 02:07:00 [facility] by Pulse oximetry [place] Systolic blood 2019-03-03 164 mm[Hg] University of pressure 18:57:00 [facility] Diastolic blood 2019-03-03 92 mm[Hg] University o f pressure 18:57:00 [facility] Heart rate 2019-03-03 97 /min [facility] 18:57:00 [facility] Body temperature 2019-03-03 37.33 Summer University 18:57:00 [facility] Respiratory rate 2019-03-03 19 /min University of 18:57:00 [facility] Oxygen saturation 2019-03-03 100 /min [facility] in Arterial blood 18:57:00 [facility] by Pulse oximetry [place] Body weight 2019-03-03 77.111 kg University of 18:53:00 [facility] BMI 2019-03-03 27.44 kg/m2 University of 18:53:00 [facility] Systolic blood 2018-10-22 152 mm[Hg] University of pressure 02:00:00 [facility] Diastolic blood 2018-10-22 106 mm[Hg] University o f pressure 02:00:00 [facility] Heart rate 2018-10-22 93 /min University 02:00:00 [facility] Respiratory rate 2018-10-22 18 /min [facility] 02:00:00 [facility] Oxygen saturation 2018-10-22 98 /min [facility] Arterial blood 02:00:00 [facility] by Pulse oximetry [place] Body temperature 2018-10-22 36.72 Summer [facility] 00:34:00 [facility] Body height 2018-10-22 167.6 cm [facility] 00:34:00 [facility] Body weight 2018-10-22 83.915 kg [facility] 00:34:00 [facility] BMI 2018-10-22 29.86 kg/m2 [facility] 00:34:00 [facility] Procedures Procedure Date / Time Performed Performing Clinician Sour e ASSIGNMENT OF BENEFITS 2022-12-14 02:59:38 Doctor Unassigned, No [facility] XR ELBOW >3 VW LEFT 2022-12-14 02:39:56 Kandice Hutchison [facility] NOTICE OF PRIVACY 2022-12-14 02:00:47 Doctor Unassigned, No [facility] CONSENT/REFUSAL FOR 2022-12-14 02:00:01 [facility] Name Medical Branch TREATMENT POCT TEST 2019-03-03 19:33:00 Rom Shultz [facility] XR CHEST 2 VW 2019-03-03 19:28:37 Rom Shultz [facility] RAPID STREP SCREEN FOR 2019-03-03 18:59:00 Jennifer Neri [facility] GROUP A [facility] ADC,CLC OR LCC ONLY - 2019-03-03 18:59:00 Jennifer Neri [facility] INFLUENZA A & B DIRECT Medical B ranch ANTIGEN NOTICE OF PRIVACY 2019-03-03 18:47:59 Doctor Unassigned, No [facility] Medical [place] CONSENT/REFUSAL FOR 2019-03-03 18:47:44 Doctor Unassigned, No [facility] AND Name Medical Branch TREATMENT XR FOREARM 2 VW RIGHT 2018-10-22 01:21:19 Juan Andujar [facility] NOTICE OF PRIVACY 2018-10-22 00:30:50 Doctor Unassigned, No [facility] Name Medical Branch CONSENT/REFUSAL FOR 2018-10-22 00:30:00 Doctor Unassigned, No [facility] AND Name Medical Branch TREATMENT Encounters Start End Encounter Admission Attending Care Care Encounter Source Date/Time Date/Time Type Type Clinicians Facility Department ID 2022-12-13 2022-12-13 Emergency X [facility] ERT [id number] Univers 21:10:00 22:15:00 KANDICE zhang [facility] 2022-12-13 2022-12-13 [facility] [id number] Univers 21:10:00 22:15:00 Kandice SOLIS [id number] i ty of [place] [id number] [place] [id number] 2021-03-18 2021-03-18 [id number] Univers 13:00:00 13:00:00 GALI leatha [facility] 2019-03-03 2019-03-03 Emergency [facility] [id number] Univers 13:00:49 15:33:00 Rom Solis [id number] i ty of [place] [address] [place] [id number] 2018-10-21 2018-10-21 Emergency [facility] [id number] Univers 19:36:33 21:40:00 Juan Solis [id number] ity of [place] [id number] [place] [id number] Results Test Description Test Time Test Comments Results Result Comments Source ADC,CLC OR LCC ONLY - INFLUENZA A & B DIRECT ANTIGEN 2019-02 19:39:00 Test Item Value Reference Range Interpretation Comme nts Influenza A (test code = 75586-9) Negative Negative Influenza B (test code = 35554-8) Negative Negative Lab Interpretation (test code = 15201-2) [facility] GROUP [id number] 19:37:00 Test Item Value Reference Range Interpretation Comments Streptococcus pyogenes (group A) Negative Negative antigen (test code = 49108-2) Lab Interpretation (test code = Normal 42764-9) [facility], [id number] 19:33:00 Test Item Value Reference Range Interpretation Comments POCT PREG (test code = 1605) negative On board controls acceptable with present C Line (test code = 3574) POCT PREG LOT # (test code = 3575) [id number] POCT PREG TEST DATE (test 2020-02-09 code = 3576) Lab Interpretation (test code = Normal 89581-9) [facility] 2 [id number] 19:30:12HISTORY: Rule out pneumonia. TECHNIQUE: PA and [...] visualized. CONCLUSIONS: No signs of acute cardiopulmonary disease.[facility], Radiant Results Inft User - 03/03/2019 1:31 [...] lesions visualized.CONCLUSIONS: No signs of acute cardiopulmonary disease.[facility]
[2022-12-16] MEDS ORDERED: KETOROLAC 30 MG/ML INJ ONE (12:17)
--- NOTE | 2022-12-16 13:10 | RAD REPORT ---
EXAM DESCRIPTION: RAD - Humerus Left - 12/16/2022 1:01 pm CLINICAL HISTORY: PAIN COMPARISON: No comparisons FINDINGS: No acute fracture or dislocation.
--- NOTE | 2022-12-16 13:13 | RAD REPORT ---
EXAM DESCRIPTION: RAD - Elbow Left 3 View - 12/16/2022 1:02 pm CLINICAL HISTORY: PAIN COMPARISON: No comparisons FINDINGS: No acute fracture or dislocation is seen. Soft tissue swelling is seen.
--- NOTE | 2022-12-16 13:13 | RAD REPORT ---
EXAM DESCRIPTION: RAD - Forearm Left - 12/16/2022 1:02 pm CLINICAL HISTORY: PAIN COMPARISON: No comparisons FINDINGS: No acute fracture or dislocation.
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
[2022-12-16 13:36] VITALS: TEMP 98.2
[2022-12-16 13:38] VITALS: BP 153/98; O2SAT 100
== END 2022-12-16 13:29 | disposition home or self-care (01) ==
LOC: ER 11:36
DX: M79.622 Pain in left upper arm (principal); I10 Essential (primary) hypertension; Z88.8 Allergy status to other drugs, medicaments and biological substances
CPT/HCPCS: 96372; 99284